=== PATIENT | male | born 1950 | race Caucasian/White ===

== ENCOUNTER 2016-06-03 02:25 | Emergency (ER) | payer BLACK LUNG, MEDICARE ==
[2016-06-03 05:57] LABS: HEMOGLOBIN 14.5 gm/dl (14.0-17.5); RED BLOOD COUNT 5.7 M/UL (4.20-5.50); WHITE BLOOD COUNT 7.9 K/UL (4.5-11.0)
[2016-06-03 06:12] LABS: BUN/CREATININE RATIO 15 (0-10)
== END 2016-06-03 09:05 | disposition home or self-care (01) ==
LOC: ER1 02:25
PROVIDERS: Student in an Organized Health Care Education/Training Program
DX: K21.9 Gastro-esophageal reflux disease without esophagitis (principal); I10 Essential (primary) hypertension; E03.9 Hypothyroidism, unspecified; Z76.0 Encounter for issue of repeat prescription; Z79.899 Other long term (current) drug therapy
CPT/HCPCS: 71010; 80053; 82550; 82553; 83690; 83874; 84484; 85025; 85610; 85730; 93005; 99284

== ENCOUNTER → 2016-06-10 | Outpatient (CLI) | payer BLACK LUNG, MEDICARE | LOC: KOH-I 08:53 | DX: J60 Coalworker's pneumoconiosis (principal); R91.8 Other nonspecific abnormal finding of lung field; N28.89 Other specified disorders of kidney and ureter | CPT/HCPCS: 71260; Q9962 ==